=== PATIENT | male | born 1990 | race American Indian/Alaskan Native ===

== ENCOUNTER 2019-08-30 11:59 | Emergency (ER) | payer SELFPAY ==
[2019-08-30] MEDS ORDERED: ACETAMINOPHEN 325 MG TAB PO ONE (12:48)
--- NOTE | 2019-08-30 12:48 | Event Note ---
ED Screening Note Date of service: 08/30/19 ED Screening Note: c/o body ahces, chills, cough, and nausea x yesterday denies diarrhea This initial assessment/diagnostic orders/clinical plan/treatment(s) is/are subject to change based on patients health status, clinical progression and re- assessment by fellow clinical providers in the ED. Further treatment and workup at subsequent clinical providers discretion. Patient/guardian urged not to elope from the ED as their condition may be serious if not clinically assessed and managed. Initial orders include: CXR flu
[2019-08-30 12:50] VITALS: BP 158/79
--- NOTE | 2019-08-30 13:53 | XRay Report ---
CHEST 2 VIEWS, 08/30/2019 1:02 PM INDICATION: Cough. Fever. COMPARISON: None FINDINGS: Support devices: None Heart: The cardiac silhouette is upper limits of normal in size. Lungs/pleura: The lungs are clear of focal airspace disease or significant pleural effusion. Additional findings: No significant acute abnormality. IMPRESSION: 1. No evidence of acute cardiopulmonary process. Signer Name: Meche Gamez MD Signed: 08/30/2019 1:49 PM Workstation Name: [id number]
[2019-08-30] MEDS ORDERED: guaiFENesin 100 MG/5 ML ORAL LIQD PO ONE (16:18)
[2019-08-30] MEDS ORDERED: predniSONE 20 MG TAB PO ONE (16:19)
--- NOTE | 2019-08-30 16:38 | Emergency Department Report ---
Minor Respiratory - HPI Chief Complaint: Fever Stated Complaint: FLU SYM Time Seen by Provider: 08/30/19 12:54 Duration: 3 Days Pain Location: Throat, Nose Severity: moderate Minor Respiratory: Yes Cough, Yes Chest Pain (with coughing), Yes Fever, No Rhinorrhea, No Sore Throat, No Able to Tolerate Fluids, No Ear Pain, No Sick Contacts, No Hemoptysis, No Shortness of Breath Other History: 29-year-old male presents to ED with upper respiratory symptoms. Patient states he has had intermittent coughing with yellow productive mucus, fever, body aches and feeling very fatigue. ED Review of Systems ROS: Stated complaint: FLU SYM Other details as noted in HPI Comment: All other systems reviewed and negative ED Past Medical Hx - Past Medical History Previous Medical History?: Yes Hx Hypertension: Yes - Surgical History Past Surgical History?: No - Social History Smoking Status: Never Smoker Substance Use Type: None - Medications Home Medications: Home Medications Medication Instructions Recorded Confirmed Last Taken Type Azithromycin [Zithromax] 250 mg PO DAILY #6 tablet 08/30/19 Unknown Rx Benzonatate [Tessalon Perles] 100 mg PO Q8HR #20 capsule 08/30/19 Unknown Rx Minor Respiratory Exam - Exam General: Vital signs noted. No distress. Alert and acting appropriately. HEENT: Yes Moist Mucous Membranes, No Pharyngeal Erythema, No Pharyngeal Exudates, No Rhinorrhea, No Conjuctival Injection, No Frontal Tenderness, No Maxillary Tenderness Ear: Neither TM Bulge, Neither TM Erythema, Neither EAC Pain, Neither EAC Discharge Neck: Yes Supple, No Adenopathy Lungs: Yes Good Air Exchange, No Wheezes, No Ronchi, No Stridor, No Cough, No Labored Respirations, No Retractions, No Use of Accessory Muscles, No Other Abnormal Lung Sounds Heart: Yes Regular, No Murmur Abdomen: Yes Normal Bowel Sounds, No Tenderness, No Peritoneal Signs Skin: No Rash, No Edema Neurologic: Alert and oriented, no deficits. Musculoskeletal: Unremarkable. ED Course Vital Signs 08/30/19 08/30/19 08/30/19 12:19 12:46 12:48 Temperature 100.0 F H 100.0 F H Pulse Rate 99 H 98 H 98 H Respiratory 20 20 22 Rate Blood Pressure 158/79 158/79 Blood Pressure 132/81 [Right] O2 Sat by Pulse 92 98 93 Oximetry ED Medical Decision Making - Radiology Data Radiology results: report reviewed, image reviewed FINDINGS: Support devices: None Heart: The cardiac silhouette is upper limits of normal in size. Lungs/pleura: The lungs are clear of focal airspace disease or significant pleural effusion. Additional findings: No significant acute abnormality. IMPRESSION: 1. No evidence of acute cardiopulmonary process. Signer Name: Meche Gamez MD Signed: 08/30/2019 1:49 PM Workstation Name: [id number] Transcribed By: EB Dictated By: Meche Gamez MD Electronically Authenticated By: Meche Gamez MD Signed Date/Time: 08/30/19 6719 - Medical Decision Making 29-year-old male presents with upper respiratory infection, possible early pneumonia Fever resolved during the ED stay. Although x-ray report does show normal findings. Per attending Dr. Costello, patient does look like he has some consolidation to the left lower lung. In addition patient looks ill appearing so will treat with azithromycin pack Discussed with the patient symptomatic relief with [id number] medications. Discussed continue Tylenol and Motrin as needed for fever and pain. Discussed increase fluids and diet intake. Discussed rest much needed. Discussed daily vitamin C for immune booster. 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 Patient verbally states she understands and will comply the following instructions and follow-up Vital signs stable. Patient is in no acute distress Critical care attestation.: If time is entered above; I have spent that time in minutes in the direct care of this critically ill patient, excluding procedure time. ED Disposition Clinical Impression: Upper respiratory infection, Fever, Malaise and fatigue Disposition: - TO HOME OR SELFCARE Is pt being admited?: No Does the pt Need Aspirin: No Condition: Stable Instructions: Upper Respiratory Infection (ED) Additional Instructions: Make sure to follow up with the primary care physician as discussed. Take all your medications as you've been prescribed. If you have any worsening symptoms or develop new symptoms please return to ED immediately. Prescriptions: Benzonatate [Tessalon Perles] 100 mg PO Q8HR #20 capsule Azithromycin [Zithromax] 250 mg PO DAILY #6 tablet [facility] [Primary Care Provider] - 3-5 Days Forms: Accompanied Note, Work/School Release Form(ED) Time of Disposition: 16:54
== END 2019-08-30 17:09 | disposition home or self-care (01) ==
LOC: ED 11:59
DX: J06.9 Acute upper respiratory infection, unspecified (principal)
CPT/HCPCS: 71046; 87400; 99284; J7512